=== PATIENT | female | born 2000 | race Caucasian/White ===

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

== ENCOUNTER 2021-01-06 19:20 | Emergency (ER) | payer OTHER ==
[2021-01-06] MEDS ORDERED: fentaNYL 100 MCG/2 ML VIAL IM STA (19:58)
--- NOTE | 2021-01-06 20:02 | ED Physician Documentation ---
History of Present Illness - Stated complaint Stated Complaint: LT ARM INJ - Chief complaint Chief Complaint: Trauma Ext - Additonal information Additional information: 20-year-old female presents to the emergency department for evaluation of acute left wrist pain and injury. She was rollerskating this evening and fell forward on her outstretched hand. She reports the pain was so bad she nearly passed out. Patient is right-hand dominant. No history of injury to this hand or wrist. No deformity however patient is unwilling to move the hand or wrist secondary to pain. 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 : None HEENT: None Musculoskeletal: None Derm: Psoriasis - Past Surgical History Past Surgical History: No - Present Medications Home Medications: Ambulatory Orders Medication Instructions Recorded Confirmed Ondansetron Odt [Zofran] 4 mg TL Q6H PRN #10 tablet 06/29/20 Ibuprofen [Motrin] 600 mg PO Q6H PRN #30 tab 01/06/21 - Allergies Allergies/Adverse Reactions: Allergies Allergy/AdvReac Type Severity Reaction Status Date / Time hydrocodone Allergy Unknown Verified 01/06/21 19:34 latex Allergy Unknown Verified 01/06/21 19:34 Sulfa (Sulfonamide Allergy Unknown Verified 01/06/21 19:34 Antibiotics) - Social History Does the pt smoke?: No Smoking Status: Never smoker Does the pt drink ETOH?: No Does the pt have substance abuse?: No - Immunizations Immunizations are current?: No - POLST Patient has POLST: No PD ED PE EXPANDED - General General: Alert, Anxious, In Pain - Extremities Extremities: Left wrist (tenderness distal radius. 2+ radial pulse. No deformity. ) Results - Vitals Vitals: Vital Signs - 24 hr 01/06/21 01/06/21 01/06/21 19:30 20:05 22:00 Temperature 36.7 C 36.7 C Heart Rate 71 72 88 Respiratory 20 19 20 Rate Blood Pressure 141/97 H 130/82 H 124/72 O2 Saturation 99 100 100 01/06/21 01/06/21 22:02 22:05 Temperature Heart Rate 82 120 H Respiratory 19 13 Rate Blood Pressure 118/79 135/78 H O2 Saturation 100 97 Oxygen O2 Source Room air Procedures - Reduction Body part reduced: Left, Wrist Fracture or dislocation: Fracture dislocation Anesthesia: Hematoma block Reduction aftercare: NV intact, Xray confirms reduction, Alignment improved, Splint applied, Sling PD MEDICAL DECISION MAKING - ED course Complexity details: reviewed results ED course: 20-year-old female presents emergency department for acute left wrist injury rollerskating fall on outstretched hand. On presentation she had an distal angulation at her radius. Initial x-ray did show a displaced distal radial fracture. CMS T was preserved. This provider did attempt hematoma block but reduction was not successful. I did speak with the on-call orthopedic surgeon Dr. Kevyn Valerio and he came to the bedside and with the assistance of Dr. Moon conscious sedation was used in order to appropriately reduce the fracture she was casted at the bedside. Post reduction imaging revealed appropriate reduction of the fracture. Pt will be dc home to follow up with Orhtopedics in the next 7-10 days. Appropriate cast care discussed Departure - Departure Disposition: 01 Home, Self Care Clinical Impression: Distal radius fracture, left Qualifiers: Encounter type: initial encounter Fracture type: closed Fracture morphology: unspecified fracture morphology Qualified Code(s): S52.502A - Unspecified fracture of the lower end of left radius, initial encounter for closed fracture Condition: Stable Record reviewed to determine appropriate education?: Yes Instructions: Cast Care, ED Emy Vazquez Ch Follow-Up: [facility] [Provider Group] Prescriptions: Ibuprofen [Motrin] 600 mg PO Q6H PRN #30 tab PRN Reason: Pain Comments: Michelle the x-ray showed that you had a distal radial fracture. The we attempted to reduce the fracture at the bedside using hematoma block we were not successful. Therefore our orthopedic physician came in and utilizing conscious sedation we were able to reduce the fracture into normal position. You have a cast on your arm. This will likely remain in place for the next 4 to 6 weeks. It cannot get wet. If it gets wet please return to the emergency department. If you find that you have discolored fingers a cold hand develop any fevers or worsening pain under the cast then please return to the emergency department. Please call the orthopedics department tomorrow to arrange to be seen in follow- up in the next 7 to 10 days.
[2021-01-06] MEDS ORDERED: LIDOCAINE 1% 2 ML VIAL SUBQ STA (20:25)
--- NOTE | 2021-01-06 20:30 | XRAY Report ---
PROCEDURE: Forearm LT INDICATIONS: Trauma TECHNIQUE: 2 views of the forearm were acquired. COMPARISON: None. FINDINGS: Bones: Comminuted, impacted distal left radial fracture with intra-articular extension. Minimally dis placed ulnar styloid process fracture. No suspicious bony lesions. Soft tissues: No suspicious soft tissue calcifications or masses. IMPRESSION: 1. Comminuted, impacted distal left radial fracture with intra-articular extension. 2. Minimally displaced ulnar styloid process fracture. Reviewed by: Ge Rizo MD on 01/06/2021 8:28 PM PST Approved by: Ge Rizo MD on 01/06/2021 8:28 PM PST Station ID: [id number]
--- NOTE | 2021-01-06 20:31 | XRAY Report ---
PROCEDURE: Wrist 4 View LT INDICATIONS: Trauma TECHNIQUE: 4 views of the wrist were acquired. COMPARISON: None. FINDINGS: Bones: Moderately comminuted, impacted distal left radial fracture with intra-articular extension. Mi ldly displaced distal left ulnar styloid process fracture. Scapholunate interval is maintained. Visua lized scaphoid appears intact. Normal carpal alignment. No suspicious bony lesions. Soft tissues: No suspicious soft tissue calcifications. IMPRESSION: 1. Comminuted, impacted distal left radial fracture with intra-articular extension. 2. Minimally displaced distal ulnar styloid process fracture. 3. Intact appearance of the scaphoid with preservation of the scapholunate interval. Reviewed by: Ge Rizo MD on 01/06/2021 8:30 PM PST Approved by: Ge Rizo MD on 01/06/2021 8:30 PM PST Station ID: [id number]
[2021-01-06] MEDS ORDERED: fentaNYL 100 MCG/2 ML VIAL IVP STA (20:57)
--- NOTE | 2021-01-06 21:22 | XRAY Report ---
PROCEDURE: Wrist 2 View LT INDICATIONS: post reduction TECHNIQUE: 2 views of the wrist were acquired. COMPARISON: Radiograph from earlier same day FINDINGS: Bones: Interval splinting of known comminuted, impacted distal left radial fracture with intra-articu lar extension. Mildly displaced distal ulnar styloid process fracture. Fine osseous details obscured by splint material. No suspicious bony lesions. Soft tissues: No suspicious soft tissue calcifications. IMPRESSION: Status post interval splinting of known comminuted distal left radial fracture as well as distal ulna r styloid fracture. Reviewed by: Ge Rizo MD on 01/06/2021 9:20 PM PST Approved by: Ge Rizo MD on 01/06/2021 9:20 PM PST Station ID: [id number]
[2021-01-06] MEDS ORDERED: PROPOFOL 200 MG/20 ML VIAL IVP STA (21:34)
[2021-01-06] MEDS ORDERED: PROPOFOL 200 MG/20 ML VIAL IVP ONE (21:45)
--- NOTE | 2021-01-06 22:01 | ED Physician Documentation ---
Procedures - Procedural sedation Sedation prep: Informed consent, Time out completed, PE performed, ASA 1 - healthy Sedation medications: propofol (150ml total) Patient status during sedation: Drowsy, Responds to tactile, Vitals remained stable, Maintained airway, Recovered uneventfully Sedation recovery: Recovered uneventfully, Back to baseline
--- NOTE | 2021-01-06 22:19 | CONSULTATION NOTE ---
Referring Provider Name of Referring Provider:: Cristofer Consult Date: 01/06/21 Chief Complaint - Chief Complaint Chief Complaint: left wrist pain History of Present Illness - History of Present Illness HPI Comment/Other: I saw this [id number] 20-year-old in consultation in the emergency room with regards to her left wrist injury. She was rollerskating earlier today when she fell on an outstretched left hand. Immediate onset of pain and deformity in the wrist. No open wound. Denies any numbness or tingling to the hand. She was brought to the emergency room, where radiographs confirmed a distal radius fracture. Attempt at reduction was made with a hematoma block however was unsuccessful. History - Past Medical History Cardiovascular: reports: None Respiratory: reports: None Neuro: reports: None Endocrine/Autoimmune: reports: None GI: reports: None TEST DEVELOPER: reports: None : reports: None HEENT: reports: None Musculoskeletal: reports: None Derm: reports: Psoriasis MRSA Hx?: No - POLST Patient has POLST: No Meds/Allgy - Home Medications Home Medications: Ambulatory Orders Medication Instructions Recorded Confirmed Ondansetron Odt [Zofran] 4 mg TL Q6H PRN #10 tablet 06/29/20 - Allergies Allergies/Adverse Reactions: Allergies Allergy/AdvReac Type Severity Reaction Status Date / Time hydrocodone Allergy Unknown Verified 01/06/21 19:34 latex Allergy Unknown Verified 01/06/21 19:34 Sulfa (Sulfonamide Allergy Unknown Verified 01/06/21 19:34 Antibiotics) Review of Systems - Other Findings Other Findings: Complete review of systems is negative aside from HPI Exam - Vital Signs Reviewed Vital Signs: Yes Vital Signs: Vital Signs x48h Temp Pulse Resp BP Pulse Ox 01/06/21 22:05 120 H 13 135/78 H 97 01/06/21 22:02 82 19 118/79 100 01/06/21 22:00 88 20 124/72 100 01/06/21 20:05 36.7 C 72 19 130/82 H 100 01/06/21 19:30 36.7 C 71 20 141/97 H 99 - Physical Exam Comments/Other: Alert and oriented x3. No apparent distress. Nonlabored respirations. Warm well perfused hand with regular pulse. Grossly normal elbow examination. Obvious deformity of the wrist. Tender at the distal radius. No ulnar-sided tenderness. Normal sensation and motor function to the hand. Conclusion/Plan - Diagnosis Diagnosis: Left wrist Colles' fracture - Plan Plan: We have discussed different treatment options. I have recommended closed reduction under procedural sedation. We have discussed the risks of the procedure and patient has agreed to proceed. Intravenous propofol was administered for sedation purposes. Closed reduction maneuver was then performed with hyperextension followed by flexion with direct pressure at the distal radius. Immediate improvement in alignment. Short arm cast then applied. Patient tolerated the procedure well and there were no complications. Postreduction films show improvement in alignment, with near anatomic reduction. Patient will be discharged home. Instructed to keep hand elevated above the level of the heart at all times. Follow-up in 1 week with updated radiographs of the wrist. Total 6 weeks immobilization. Should she develop worsening of pain in the wrist or paresthesias to the hand, she is to return to the emergency room for a univalving of the cast. - Diagnostic Imaging Results Diagnostic Imaging Results: positive: Read independently (Closed extra-articular Left distal radius Colles' fracture)
[2021-01-06 22:21] VITALS: BP 113/74
--- NOTE | 2021-01-07 11:11 | XRAY Report ---
PROCEDURE: Wrist 2 View LT INDICATIONS: reduction TECHNIQUE: 2 views of the wrist were acquired. COMPARISON: X-ray left wrist, 01/06/2021. X-ray left forearm, 01/06/2021 FINDINGS: Bones: Comminuted distal radial metaphyseal fracture in anatomic alignment. There is a mildly displa kenny ulnar styloid fracture No suspicious bony lesions. Soft tissues: No suspicious soft tissue calcifications. IMPRESSION: Distal radial metaphyseal fracture and ulnar styloid fracture. No significant discrepancy with the preliminary interpretation. Reviewed by: Alvaro Gray MD on 01/07/2021 11:10 AM [facility] Approved by: Alvaro Gray MD on 01/07/2021 11:10 AM [facility] Station ID: [id number]
== END 2021-01-06 22:52 | disposition home or self-care (01) ==
LOC: ED 19:20
DX: S52.532A Colles' fracture of left radius, initial encounter for closed fracture (principal); W18.39XA Other fall on same level, initial encounter; Y93.51 Activity, roller skating (inline) and skateboarding
CPT/HCPCS: 25605; 94770; 99152; 99283

== ENCOUNTER 2021-08-09 09:07 | Emergency (ER) | payer OTHER ==
--- NOTE | 2021-08-09 09:28 | ED Physician Documentation ---
PD HPI SKIN - Stated complaint Stated Complaint: PX/SWELLING - Chief complaint Chief Complaint: General - History obtained from History obtained from: Patient - History of Present Illness Timing - onset: How many days ago (3) Timing - duration: Days (3) Timing - details: Gradual onset (had noted some itching and burning feeling of hands/wrists for few days. then overnight into today with marked pain, redness, swelling of both wrists, pain at knees and ankles. No dyspnea, general itching, lip nor throat swelling.) Location: Other (both volar wrists and thenar areas, anterior knees and lateral ankles.). No: Face, Chest Quality / character: Itchy, Painful, Burning, Swelling Improved by: No: Benadryl Associated symptoms: No: Fever, N/V/D Contributing factors: Exposed to medication. 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 Gets monthly injection of Skyrizi for that ( not a new med).) Recently seen: Clinic (was started on new meds Buproprion 3 weeks ago with dose increased a week ago. Previous has been on Doluxetine and the dose of that was increased.) Review of Systems Constitutional: denies: Fever, Chills Nose: denies: Rhinorrhea / runny nose, Congestion Throat: denies: Sore throat Respiratory: denies: Dyspnea, Cough, Wheezing GI: denies: Abdominal Pain, Nausea, Vomiting, Diarrhea PD PAST MEDICAL HISTORY - Past Medical History Cardiovascular: None Respiratory: None Neuro: None Endocrine/Autoimmune: None GI: None POSTDOCTORAL SCIENTIST: None : None HEENT: None Musculoskeletal: None Derm: Psoriasis - Past Surgical History Past Surgical History: No - Present Medications Home Medications: Ambulatory Orders Medication Instructions Recorded Confirmed Ondansetron Odt [Zofran] 4 mg TL Q6H PRN #10 tablet 06/29/20 Ibuprofen [Motrin] 600 mg PO Q6H PRN #30 tab 01/06/21 Ondansetron Odt [Zofran] 4 mg TL Q6H PRN #10 tablet 08/09/21 dexAMETHasone [Decadron] 4 mg PO DAILY 6 Days #6 tablet 08/09/21 traMADol [Ultram] 50 mg PO Q6H PRN #10 tablet 08/09/21 - Allergies Allergies/Adverse Reactions: Allergies Allergy/AdvReac Type Severity Reaction Status Date / Time hydrocodone Allergy Unknown Verified 08/09/21 09:21 latex Allergy Unknown Verified 08/09/21 09:21 Sulfa (Sulfonamide Allergy Unknown Verified 08/09/21 09:21 Antibiotics) - Social History Does the pt smoke?: No Smoking Status: Never smoker Does the pt drink ETOH?: No Does the pt have substance abuse?: No - Immunizations Immunizations are current?: No - POLST Patient has POLST: No PD ED PE NORMAL - Vitals Vital signs reviewed: Yes - General General: Alert and oriented X 3, Well developed/nourished, Other (appears uncomfortable due to joint pains and swelling. ) - HEENT HEENT: Pharynx benign - Neck Neck: Supple, no meningeal sign, No adenopathy - Cardiac Cardiac: RRR, No murmur - Respiratory Respiratory: No respiratory distress, Clear bilaterally - Abdomen Abdomen: Soft, Non tender - Derm Derm: Normal color, Warm and dry, Other (no generalized rash/hives. ) - Extremities Extremities: Other (both volar wrists and thenar areas with swelling, redness, tenderness localized. Both anterior knees with some swelling and mild redness. Ankles tender but no redness laterally. ) - Neuro Neuro: No motor deficit, No sensory deficit Results - Vitals Vitals: Vital Signs - 24 hr 08/09/21 08/09/21 08/09/21 09:11 10:02 11:49 Temperature 36.8 C Heart Rate 84 85 Respiratory 16 16 Rate Blood Pressure 116/74 117/69 111/75 O2 Saturation 99 97 100 Oxygen O2 Source Room air - Labs Labs: Laboratory Tests 08/09/21 08/09/21 08/09/21 10:16 10:16 10:16 WBC 5.8 RBC 4.76 Hgb 14.4 Hct 42.0 MCV 88.2 MCH 30.3 MCHC 34.3 RDW 12.9 Plt Count 197 MPV 9.6 Neut # (Auto) 3.3 Lymph # (Auto) 1.5 Mchenry # (Auto) 0.8 Eos # (Auto) 0.1 Baso # (Auto) 0.0 Absolute Nucleated RBC 0.00 Nucleated RBC % 0.0 ESR 14 Sodium 138 Potassium 3.6 Chloride 105 Carbon Dioxide 25 Anion Gap 8.0 BUN 8 Creatinine 0.7 Estimated GFR (MDRD) 107 Glucose 99 Calcium 9.3 Total Bilirubin 0.8 AST 19 ALT 15 Alkaline Phosphatase 69 Total Protein 7.7 Albumin 4.4 Globulin 3.3 Albumin/Globulin Ratio 1.3 Lipase 27 PD MEDICAL DECISION MAKING - ED course Complexity details: re-evaluated patient (improved quite a bit with IV steroids and Toradol here. bonsai tender but much less redness and swelling. So consider more of allergic reaction. Epocrates does list arthrlgias and rash as possible side effects of buprorion though. ), considered differential (consider hives equivalent but not generalized. No scaling nor skin changes in areas of red/tender but could be some psoriatic arthritis abruptly. No fever nor URI symptoms. Denies vaginal discharge/irritation; low suspicion for septic arthritis, bernabe the symmetry. ), d/w patient Departure - Departure Disposition: 01 Home, Self Care Clinical Impression: Polyarthritis Acute allergic reaction Qualifiers: Encounter type: initial encounter Qualified Code(s): T78.40XA - Allergy, unspecified, initial encounter Condition: Stable Record reviewed to determine appropriate education?: Yes Follow-Up: [facility] [Provider Group] Prescriptions: dexAMETHasone [Decadron] 4 mg PO DAILY 6 Days #6 tablet traMADol [Ultram] 50 mg PO Q6H PRN #10 tablet PRN Reason: Pain Ondansetron Odt [Zofran] 4 mg TL Q6H PRN #10 tablet PRN Reason: Nausea / Vomiting Comments: Assume this is most likely an allergy or medication reaction. Other considerations would be new generalized psoriatic flareup though would be less likely that its fading this quickly in response to the steroids and anti-inflammatories. I would suggest continuing with Decadron steroid daily for 6 more days. You can add in some Benadryl or cetirizine twice daily as there is could be some histamine mediated component. A drug reference called Hippocrates lists joint pains and rashes possible side effects to the bupropion. Given possible medication side effect, I would suggest decreasing the bupropion to the lower dose you were initially on for 2 or 3 days. If your symptoms improve and you are doing well then just continue with that and follow-up with your primary care. If the joint pains or rash are lingering some, then discontinue the bupropion after 2 to 3 days. Return if worsening general symptoms. Rest off work today and tomorrow due to this. Add Tylenol every 4-6 hours if needed for pain. To that add tramadol every 6 hours if needed for worse pain. I wrote a small prescription of this for you since you said it is the one that does not make you nauseated. Just in case I also wrote a prescription for some ondansetron to use for nausea in conjunction if needed. Follow-up with your primary care if not improving well over the next few days. I transmitted your scripts to [facility] in [place]. Forms: Activity restrictions Discharge Date/Time: 08/09/21 11:53
[2021-08-09] MEDS ORDERED: KETOROLAC 30 MG/ML VIAL IVP STA (10:02)
[2021-08-09] MEDS ORDERED: DEXAMETHASONE 10 MG/ML VIAL IVP STA (10:03)
[2021-08-09] MEDS ORDERED: ACETAMINOPHEN 325 MG TABLET PO STA (10:03)
[2021-08-09 10:23] LABS: BASOPHILS % (AUTO) 0.3 %; EOSINOPHILS # (AUTO) 0.1 10^3/uL (0.0-0.7); HGB - HEMOGLOBIN 14.4 g/dL (12.0-16.0); LYMPHOCYTES # (AUTO) 1.5 10^3/uL (1.5-3.5); LYMPHOCYTES % (AUTO) 26.7 %; MEAN CORPUSCULAR HEMOGLOBIN 30.3 pg (27.0-31.0); MEAN CORPUSCULAR HGB CONC 34.3 g/dL (32.0-36.0); MEAN CORPUSCULAR VOLUME 88.2 fL (81.0-99.0); MEAN PLATELET VOLUME 9.6 fL (7.9-10.8); MONOCYTES # (AUTO) 0.8 10^3/uL (0.0-1.0); MONOCYTES % (AUTO) 14.1 %; NEUTROPHILS # (AUTO) 3.3 10^3/uL (1.5-6.6); NEUTROPHILS % (AUTO) 57.7 %; PLT - PLATELET COUNT 197 10^3/uL (130-450); RED BLOOD COUNT 4.76 10^6/uL (4.20-5.40); RED CELL DISTRIBUTION WIDTH 12.9 % (12.0-15.0); WHITE BLOOD COUNT 5.8 x10^3/uL (4.8-10.8)
[2021-08-09 10:38] LABS: ALBUMIN 4.4 g/dL (3.2-5.5); ALBUMIN/GLOBULIN RATIO 1.3 (1.0-2.2); BILIRUBIN,TOTAL 0.8 mg/dL (0.2-1.0); CALCIUM 9.3 mg/dL (8.5-10.3); CREATININE 0.7 mg/dL (0.4-1.0); POTASSIUM 3.6 mmol/L (3.5-5.0); TOTAL PROTEIN 7.7 g/dL (6.7-8.2)
[2021-08-09 11:50] VITALS: BP 111/75
== END 2021-08-09 11:53 | disposition home or self-care (01) ==
LOC: ED 09:07
DX: M13.0 Polyarthritis, unspecified (principal); T78.40XA Allergy, unspecified, initial encounter
CPT/HCPCS: 36415; 80053; 83690; 85025; 85651; 96374; 99283; 99284; A9270